=== PATIENT | female | born 1985 | race Caucasian/White ===

== ENCOUNTER 2021-09-27 13:03 | Emergency (ER) | payer MEDICAID, OTHER ==
[~2021-09-27] VITALS: Ht 165.1 cm; Wt 91.6 kg
[~2021-09-27 13:03] MED LIST: NORE1TAB93 PO
[2021-09-27 13:28] VITALS: BP 131/81
--- NOTE | 2021-09-27 13:31 | NUR ---
ALBERTOFRIENWillie C/O Started having rash on neck- now spreading to chin. Also neck pain". PLACED ON CHAIR, [id number]. SEEN EXAMINED BY
[2021-09-27] MEDS ORDERED: VALA500T40 PO (13:40)
[2021-09-27] MEDS ORDERED: SULF1TAB48 PO (13:40)
--- NOTE | 2021-09-27 13:50 | NUR ---
Patient discharged to home in stable condition. Written and verbal after care instructions given. Patient verbalizes understanding of instruction.
== END 2021-09-27 13:50 | disposition home or self-care (01) ==
LOC: ER 13:10
DX: B02.9 Zoster without complications (principal); I10 Essential (primary) hypertension; Z88.0 Allergy status to penicillin; Z79.899 Other long term (current) drug therapy